=== PATIENT | female | born 1985 | race Caucasian/White ===

== ENCOUNTER 2016-12-05 05:37 | Inpatient (IN) | payer BC ==
[~2016-12-05] VITALS: Ht 167.6 cm; Wt 81.2 kg
[2016-12-05] MEDS ORDERED: LACTATED RINGER'S 1000ML 1,000 ML IV PRN (06:16)
[2016-12-05] MEDS ORDERED: LACTATED RINGER'S 1000ML 1,000 ML IV SCH ×2 (06:16→11:54)
[2016-12-05] MEDS ORDERED: PRENTAB26 PO (06:29)
[2016-12-05 06:30] VITALS: Ht 167.6 cm; Wt 81.2 kg
[2016-12-05 06:39] LABS: HEMATOCRIT 39.4 % (37-47); MEAN CORPUSCULAR HEMOGLOBIN 31.3 pg (25-34); MEAN CORPUSCULAR HGB CONC 34.8 g/dl (32-36); PLATELET COUNT 225 K/uL (130-400); RED BLOOD COUNT 4.38 M/uL (4.2-5.4); WHITE BLOOD COUNT 14.05 K/uL (4.8-10.8)
[2016-12-05] MEDS ORDERED: BUPIVACAINE 0.25% 30 ML VIAL ONE (07:21)
[2016-12-05] MEDS ORDERED: EpHEDrine SULFATE INJ 50 MG/ML AMP ONE (07:22)
[2016-12-05] MEDS ORDERED: FENTANYL CITRATE INJ 50 MCG/1 ML 2 ML VIAL ONE (07:22)
[2016-12-05] MEDS ORDERED: FENTANYL 2MCG/ML ROPIV 1.25MG/ML 100ML BAG EPI ONE (07:22)
[2016-12-05] MEDS ORDERED: LACTATED RINGER'S 1000ML 500 ML IV PRN (08:02)
[2016-12-05] MEDS ORDERED: NALOXONE HCL INJ 1 MG in SODIUM CHLORIDE 0.9% 1000ML 1,000 ML IV PRN (08:02)
[2016-12-05] MEDS ORDERED: EpHEDrine SULFATE INJ 50 MG/ML AMP IV PRN (08:15)
[2016-12-05] MEDS ORDERED: FENTANYL 2MCG/ML ROPIV 1.25MG/ML 100ML BAG EPI PRN (08:15)
[2016-12-05] MEDS ORDERED: ONDANSETRON INJ 2 MG/ML 2 ML VIAL IV PRN (08:15)
[2016-12-05] MEDS ORDERED: NALOXONE HCL INJ 0.4 MG/1 ML VIAL/CARP IV PRN (08:15)
[2016-12-05] MEDS ORDERED: NALBUPHINE HCL INJ 10 MG/ML AMP IV PRN (08:15)
[2016-12-05] MEDS ORDERED: DiphenhydrAMINE HCL 50 MG/ML VIAL IV PRN (08:15)
--- NOTE | 2016-12-05 08:58 | Progress Note ---
Progress Note Date of Service Dec 05, 2016. Progress Note Admit Note 31 F P0010 at 40 weeks admitted in active labor. GBS negative. FHT Cat 1. AROM clear fluid. Cervix now 6-7/90/0/vertex. Anticipate normal delivery.
--- NOTE | 2016-12-05 11:17 | Progress Note ---
Progress Note Date of Service Dec 05, 2016. Progress Note Cervix fully dilated/+1 FHT Cat 1 Will start to push
[2016-12-05] MEDS ORDERED: OXYTOCIN 30 UNITS/500ML NSS IV ONE (11:22)
[2016-12-05] MEDS ORDERED: DIPHTHERIA/TETANUS/PERTUSSIS 0.5 ML SYR/VIAL IM. ONE (12:00)
[2016-12-05] MEDS ORDERED: ACETAMINOPHEN/CODEINE 300/30MG TAB PO PRN ×2 (12:00)
[2016-12-05] MEDS ORDERED: MEASLES, MUMPS & RUBELLA VIRUS VIAL SQ. ONE (12:00)
[2016-12-05] MEDS ORDERED: OXYTOCIN 30 UNITS/500ML NSS IV PRN (12:00)
[2016-12-05] MEDS ORDERED: ACETAMINOPHEN 325 MG TAB PO PRN (12:00)
[2016-12-05] MEDS ORDERED: SUPERCREAM 0.870 % 15GM JAR EXT PRN (12:00)
[2016-12-05] MEDS ORDERED: HYDROCORTISONE ACETATE 25 MG SUPP PR PRN (12:00)
[2016-12-05] MEDS ORDERED: LANOLIN OINT EXT PRN ×2 (12:00)
[2016-12-05] MEDS ORDERED: BENZOCAINE 20% AER SPR 82.5 GM CAN EXT PRN (12:00)
--- NOTE | 2016-12-05 12:00 | Vaginal Delivery Summary ---
Vaginal Delivery Summary Delivery Note live female over intact perineum SHELBY with Apgars 8/9 weight pending. Delayed cord clamping. Cord blood obtained and placenta delivered spontaneously and intact. Small 1st degree vaginal tear repaired with 3/0 Vicryl suture. Final sponge, needle and instrument count are correct. EBL 200 ml. Mom and baby stable.
--- NOTE | 2016-12-05 14:00 | Anesthesia Procedure Note ---
Anesthesia Epidural Removal Nt Date & Time Dec 05, 2016 at 13:59 Vital Signs Pain Intensity: 0.0 Notes Mental Status: alert / awake / arousable, participated in evaluation Nausea / Vomiting: adequately controlled Pain: adequately controlled Airway Patency, RR, SpO2: stable & adequate BP & HR: stable & adequate Hydration State: stable & adequate Neuraxial Anesthesia: was administered, sensory block is resolving Anesthetic Complications: no major complications apparent, pt satisfied with anesthetic care Epidural: removed without complications, with tip intact
[2016-12-05 15:00] VITALS: BP 113/76; PULSE 117; TEMP 36.7
[2016-12-05] MEDS: DOCUSATE SODIUM 100 MG CAP PO SCH ×2 (19:43→19:51)
[2016-12-05 19:45] VITALS: BP 123/80; PULSE 93; TEMP 36.7
[2016-12-06 01:15] VITALS: BP 114/72; PULSE 85; TEMP 36.6
[2016-12-06 04:30] VITALS: BP 112/73; PULSE 76; TEMP 36.8
[2016-12-06 07:23] LABS: HEMATOCRIT 35.8 % (37-47)
[2016-12-06] MEDS: IBUPROFEN 600 MG TAB PO PRN (07:43)
[2016-12-06] MEDS: FERROUS SULFATE 325 MG TAB PO SCH (07:44)
[2016-12-06] MEDS: DOCUSATE SODIUM 100 MG CAP PO SCH ×2 (07:44→19:41)
[2016-12-06] MEDS: PRENATAL VITAMIN TAB PO SCH (07:44)
[2016-12-06 08:32] VITALS: BP 123/79; PULSE 74; TEMP 36.9; O2SAT 96
--- NOTE | 2016-12-06 09:41 | OB/GYN Progress Note ---
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 Subjective conversation w/ patient, physical exam Ambulation: ambulating normally Voiding: no voiding problems Passing Gas: Yes Diet Tolerance: Regular Diet Lochia: Moderate Feeding Type: Breast Feeding Pain: 2/10 Notes: Doing well, no concerns. Pain well controlled. Lochia decreasing. Ambulating without difficulty. Tolerating regular diet. Objective Vital Signs Date Time Temp Pulse Resp B/P (MAP) Pulse Ox O2 Delivery O2 Flow Rate FiO2 12/06/16 08:32 36.9 74 20 123/79 (94) 96 Room Air 12/06/16 04:30 36.8 76 18 112/73 (86) 12/06/16 01:15 36.6 85 18 114/72 (86) 12/05/16 19:45 36.7 93 18 123/80 (94) 12/05/16 15:00 36.7 117 20 113/76 (88) Physical Exam General Appearance: WELL-APPEARING Respiratory/Chest: chest non-tender, lungs clear Cardiovascular: regular rate, rhythm Abdomen: normal bowel sounds, soft Fundus: Firm Extremities: normal range of motion, non-tender, no calf tenderness Laboratory Results Last 24 Hours Test 12/06/16 06:47 Hemoglobin 12.1 g/dL Hematocrit 35.8 % Assessment and Plan Post- Day Number: 1 Continue Routine Care: -Continue routine care -Anticipate d/c home tomorrow
[2016-12-06 15:49] VITALS: BP 120/71; PULSE 62; TEMP 36.9
[2016-12-06 19:25] VITALS: BP 113/66; PULSE 71; TEMP 37; O2SAT 97
[2016-12-06] MEDS ORDERED: BISACODYL 5 MG TABEC PO SCH (20:00)
[2016-12-06 23:40] VITALS: BP 120/78; PULSE 77; TEMP 36.8; O2SAT 96
[2016-12-07] MEDS ORDERED: BISACODYL 10 MG SUPP PR PRN (07:00)
[2016-12-07] MEDS: PRENATAL VITAMIN TAB PO SCH (07:36)
[2016-12-07] MEDS: DOCUSATE SODIUM 100 MG CAP PO SCH (07:36)
[2016-12-07] MEDS: FERROUS SULFATE 325 MG TAB PO SCH (07:36)
[2016-12-07] MEDS: IBUPROFEN 600 MG TAB PO PRN (07:37)
[2016-12-07 07:45] VITALS: BP 126/82; PULSE 63; TEMP 36.6
[2016-12-07] MEDS ORDERED: MTR600X PO (07:51)
--- NOTE | 2016-12-07 07:53 | Discharge Instructions ---
Discharge Instructions Date of Service Dec 07, 2016. Admission Reason for Admission: Uterine Contractions At Greater Than 20 Weeks Of Discharge Discharge Diagnosis / Problem: term delivered Discharge Goals Goal(s): Routine recovery after delivery Activity Recommendations Activity Limitations: as noted below Lifting Limitations: no more than 10 pounds Exercise/Sports Limitations: gradually increase as tolerated May Resume Sexual Activity: after follow-up appointment Shower/Bathe: no limitations . Instructions / Follow-Up Instructions / Follow-Up ACTIVITY RECOMMENDATIONS: * Gradual return to full activity over the next 2-3 weeks. * No lifting - nothing heavier than baby over the next 2-3 weeks. * Do not engage in vigorous exercise, sexual activity or sports until cleared by your physician. * Do not drive or operate any motorized equipment until cleared by your physician. * You may shower/bathe daily. BREAST CARE: If you are not breast feeding: * Wear a supportive bra 24 hours a day for one to two weeks. * Avoid stimulating your breasts and nipples as much as possible during the first few weeks after delivery. * When taking a shower, have the warm water hit your back, not breasts. * When your breasts feel full, apply ice packs. Usually three to four times a day helps ease the discomfort. * Take a mild pain medication (Tylenol/Motrin) when you are uncomfortable. If breast feeding: * Use breast milk to lubricate nipples. Lansinoh cream may be used for sore nipples. You do not need to remove cream prior to breast feeding. If using a different brand of cream, check the label for directions regarding removal of cream prior to nursing. * Wear a supportive bra. * If having problems with breasts or breast feeding, call a information technology consultant or your health care provider. EPISIOTOMY CARE: After delivery, if you have an episiotomy (stitches), the following steps will ease discomfort and aid healing. * For the first 24 hours after delivery, place ice packs next to your episiotomy to help reduce swelling. * After the first 24 hour-period, sitz baths, either portable or in the tub, are suggested. A shower with a shower arm sprayed over the episiotomy may be comforting. * Lilly care should be done after each voiding and bowel movement. Squirt warm water from a plastic bottle over the perineum (region of the body between the anus and urinary opening) and pat dry. * Use Dermoplast to ease discomfort. Shake container. [place] directly over the episiotomy. * Place a Tucks on a clean sanitary pad next to your episiotomy. OVER THE COUNTER MEDICATION: * For discomfort or pain, you may use Acetaminophen (Tylenol), Ibuprofen (Advil ), or Naproxen (Aleve) following the package directions. * For constipation you may use Colace following the package directions. SPECIAL CARE INSTRUCTIONS: When you are discharged from the hospital, it is important for you to follow the instructions listed below: * During the first week at home, you should be able to care for yourself and your baby. In addition, the usual light household activities are encouraged. * Limit your activities to the way you feel. Do not try to clean the house or move furniture. Be sensible. * If you actively engage in sports and have done so up until the time of your delivery, you may resume these activities as soon as you feel able. This may take up to one month or even longer. Use good judgment. * Continue to take your vitamins for at least six weeks after the of your baby. * Your diet need not be limited unless you were on a special diet before your delivery. Breast-feeding mothers need around 2500 calories per day and at least 64-80 ounces of fluid per day (8 to 10 glasses). * You should eat foods from the four major food groups. Crash diets or fad diets are to be avoided. Eating lean meats, fresh fruits and vegetables, low-fat dairy products, high fiber foods and a regular exercise program, will help you get back to your pre- weight without putting your health at risk. * Constipation is sometimes a problem after delivery. Take a mild laxative as needed. If breast feeding, Milk of Magnesia is acceptable to use. You may use a suppository or Fleets enema if no episiotomy. * A daily shower or tub bath is suggested. Be sure to thoroughly and gently dry the perineum. * A bloody vaginal discharge will usually continue until around four weeks post . A small amount of bleeding may continue for as long as six weeks. Vaginal discharge changes from the bright red bleeding after delivery to pink then brownish and finally yellowish-pink before becoming white and disappearing. * Bleeding may increase with activity. Your first period may come in 4-8 weeks. If you are breast feeding, your period may be delayed even longer. * [place] (sex) can begin whenever both you and your partner feel comfortable and do not have any form of genital infection. It is recommended that you wait until after your return appointment and discuss with your physician. If you have questions, please talk to your health care practitioner. A condom should be used to prevent infection and . * Foreplay, gentle intercourse and lubrication is very important the first several times to prevent pain. A water-based lubricant such as K-Y jelly or Astroglide may be used. * Tampons may be used six weeks after delivery. * Douching should be avoided for 6 weeks after delivery. * If you have RH negative blood and your baby is RH positive, you will receive RHOGAM by injection prior to discharge. The nurse will give you a card to keep with you that has the date and place that you received RHOGAM after delivery. * During your care, you had a Rubella screen done to check for the presence of rubella antibodies in your blood. If your test was negative, you will receive a Rubella vaccine prior to discharge. This vaccine may cause a fever, soreness at the injection site and flu-like symptoms. If these symptoms persist, notify your health care practitioner. is not advised for three months after a Rubella vaccine. There is a higher chance of having a baby with defects if conceived within three months of getting the vaccine. * If you were discharged 24 hours from delivery or before 48 hours: Visiting nurses will come to your home 48 hours after discharge to assess you and your baby. The visiting nurse will meet with you while you are in the hospital to arrange a time and get directions to your home. * Verbalizes understanding of car seat law as reviewed with patient nursing. * Car Seat hand-out given and reviewed with patient by nursing. * Shaken baby information reviewed with patient by nursing. Call you doctor if: * Heavy bleeding (saturating several pads an hour) or passing clots the size of your fist. * A fever >101 degrees F (38.3 degrees C) on two occasions four hours apart and/or chills. * Unusual pain in the pelvic or vaginal areas. * "Baby Blues" lasting longer than two weeks. If you have any questions or concerns, call your health care practitioner at . FOLLOW-UP VISIT: * Please call the office at to schedule a 6 week examination. It is important you keep this appointment. * It is important for you to make arrangements for either yearly or twice yearly check-ups thereafter. Current Hospital Diet Patient's current hospital diet: Regular OB Diet Discharge Diet Recommended Diet: Regular OB Diet Fluid Restriction: None Pending Studies Studies pending at discharge: no Medical Emergencies . Who to Call and When: Medical Emergencies: If at any time you feel your situation is an emergency, please call 911 immediately. . Non-Emergent Contact Non-Emergency issues call your: Primary Care Provider . . "Provider Documentation" section prepared by Tien Lau. . VTE Core Measure Inpt VTE Proph given/why not?: Treatment not indicated
--- NOTE | 2016-12-07 08:13 | OB/GYN Progress Note ---
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 Subjective conversation w/ patient, physical exam Ambulation: ambulating normally Voiding: no voiding problems Passing Gas: Yes Diet Tolerance: Regular Diet Lochia: Small Feeding Type: Breast Feeding Objective Vital Signs Date Time Temp Pulse Resp B/P (MAP) Pulse Ox O2 Delivery O2 Flow Rate FiO2 12/06/16 23:40 Room Air 12/06/16 23:40 36.8 77 18 120/78 (92) 96 Room Air 12/06/16 19:25 37.0 71 18 113/66 (82) 97 Room Air 12/06/16 15:49 36.9 62 20 120/71 (87) 12/06/16 08:32 36.9 74 20 123/79 (94) 96 Room Air Physical Exam General Appearance: WELL-APPEARING, NO APPARENT DISTRESS Abdomen: non tender, soft Fundus: Firm Extremities: non-tender, normal inspection, no pedal edema, no calf tenderness Assessment and Plan Post- Day Number: 2 Continue Routine Care: discharged
[2016-12-07 11:10] VITALS: BP_DIAS 82; PULSE 63; TEMP 36.6
== END 2016-12-07 11:10 | disposition home or self-care (01) | DRG 775 ==
LOC: C.LD 05:37 → C.OPB 05:37 → C.LD 06:17 → C.OPB 06:18 → C.OBG 14:52
PROVIDERS: ADMIT Obstetrics & Gynecology; ATTEND Obstetrics & Gynecology
PROC: 0HQ9XZZ Repair Perineum Skin, External Approach (ICD-10-PCS; principal; 2016-12-05)
PROC: 10E0XZZ Delivery of Products of Conception, External Approach (ICD-10-PCS; principal; 2016-12-05)
PROC: 4A1HXFZ Monitoring of Products of Conception, Cardiac Rhythm, External Approach (ICD-10-PCS; principal; 2016-12-05)
PROC: 10907ZC Drainage of Amniotic Fluid, Therapeutic from Products of Conception, Via Natural or Artificial Opening (ICD-10-PCS; principal; 2016-12-05)
DX: O70.0 First degree perineal laceration during delivery (principal); Z90.79 Acquired absence of other genital organ(s); Z3A.40 40 weeks gestation of pregnancy; Z37.0 Single live birth

== ENCOUNTER 2016-12-14 20:27 | Emergency (ER) | payer BC ==
[~2016-12-14] VITALS: Ht 165.1 cm; Wt 72.0 kg
[~2016-12-14 20:27] MED LIST: MTR600X PO; PRENTAB26 PO
[2016-12-14 20:43] VITALS: Ht 165.1 cm; Wt 72.0 kg
[2016-12-14] MEDS ORDERED: SODIUM CHLORIDE 0.9% 1000ML 1,000 ML IV STA (21:41)
[2016-12-14 22:02] LABS: BASO % 0.1 %; BASO ABS # 0.01 K/uL (0-0.2); COMPLETE YES; EOS % 0.3 %; HEMATOCRIT 41.6 % (37-47); IG% 0.3 %; LYMPH % 5.3 %; LYMPH ABS # 1.03 K/uL (1.2-3.4); MEAN CELL VOLUME 92.4 fL (80-100); MEAN CORPUSCULAR HEMOGLOBIN 30.9 pg (25-34); MEAN CORPUSCULAR HGB CONC 33.4 g/dl (32-36); MEAN PLATELET VOLUME 10.2 fL (7.4-10.4); MONO % 4.8 %; NEUT % 89.2 %; PLATELET COUNT 338 K/uL (130-400); WHITE BLOOD COUNT 19.27 K/uL (4.8-10.8)
[2016-12-14 22:14] LABS: URINE APPEARANCE CLEAR (CLEAR); URINE BILIRUBIN NEG (NEG); URINE COLOR YELLOW; URINE NITRITE NEG (NEG); URINE PH 5.5 (4.5-7.5); URINE SPECIFIC GRAVITY 1.014 (1.000-1.030); UROBILINOGEN NEG (NEG); ZZUR CULT IF INDIC CLEAN CATCH NO
[2016-12-14 22:23] LABS: BUN/CREATININE RATIO 11.7 (10-20); CALCIUM 8.5 mg/dl (8.5-10.1); CREATININE 0.87 mg/dl (0.60-1.20); POTASSIUM 3.4 mmol/L (3.5-5.1)
[2016-12-14 22:24] LABS: MANUAL MICROSCOPIC REQUIRED? NO; REVIEW REQ? NO
--- NOTE | 2016-12-14 22:39 | DIAGNOSTIC IMAGING REPORT ---
SINGLE VIEW CHEST CLINICAL HISTORY: Fever. FINDINGS: An AP, portable, upright chest radiograph is obtained. No prior studies are available for comparison at the time of dictation. The examination is mildly degraded by portable technique and patient rotation. The cardiomediastinal silhouette is unremarkable. The lungs and pleural spaces are clear. No pneumothorax is seen. The bony thorax is grossly intact. IMPRESSION: No active disease in the chest. Electronically signed by: Ran Hnasen M.D. 12/14/2016 10:38 PM Dictated Date/Time: 12/14/2016 10:38 PM
[2016-12-15] MEDS ORDERED: DICLOXACILLIN SODIUM 250 MG CAP PO STA ×2 (00:28→00:42)
[2016-12-15] MEDS ORDERED: ACETAMINOPHEN 500 MG TAB PO STA (00:28)
[2016-12-15] MEDS ORDERED: EMPTY 8 DRAM VIAL ONE (00:48)
[2016-12-15] MEDS ORDERED: DCL/500 PO (00:50)
--- NOTE | 2016-12-15 00:50 | EMERGENCY ROOM VISIT NOTE ---
History First contact with patient: 21:34 Chief Complaint: ILLNESS Stated Complaint: FEVER,CHILLS AFTER VAG DELIVERY 12-05 History of Present Illness The patient is a 31 year old female who presents to the Emergency Room with complaints of fevers which began this afternoon. The patient states that she was laying on the couch and felt chills. She took her temperature and it was 102F. She states that she had a vaginal delivery 10 days ago. She states that she had a minimal amount of pelvic pain earlier today but denies pain in this time. She reports some vaginal bleeding but denies discharge. She denies nausea, vomiting, cough, cold symptoms or urinary symptoms. She does state that she has had some soreness in her right breast. She is currently breast- feeding. She took Motrin about 2 hours prior to arrival. Review of Systems A complete 10 point review of systems was reviewed with the patient with pertinent positives and negatives as per history of present illness. All else were negative. Past Medical/Surgical History Medical Problems: (1) No pertinent past medical history (2) Uterine contractions at greater than 20 weeks of gestation Family History Patient reports no known family medical history. Social History Smoking Status: Never Smoker Alcohol Use: none Drug Use: none Marital Status: in relationship Occupation Status: employed Current/Historical Medications Scheduled Dicloxacillin Sodium (Dynapen), 1 CAP PO QID Multivit/Min/Iron/Fol Ac/Pren ( Vitamin), 1 TAB PO DAILY Scheduled PRN Ibuprofen (Ibuprofen), 600 MG PO Q4H PRN for PAIN, DE DIOS, CRAMPING OR FEVER Allergies Coded Allergies: No Known Allergies (Unverified , 12/05/16) Physical Exam Vital Signs Date Time Temp Pulse Resp B/P (MAP) Pulse Ox O2 Delivery O2 Flow Rate FiO2 12/15/16 01:04 37.5 84 18 125/83 98 12/15/16 00:43 37.5 84 18 125/83 98 Room Air 12/14/16 22:24 37.8 101 18 128/82 100 Room Air 12/14/16 20:43 36.8 116 18 127/85 96 Room Air Physical Exam VITALS: Vitals are noted on the nurse's note and reviewed by myself. Vital signs stable. GENERAL: This is a 31-year-old female, in no acute distress, nondiaphoretic, well-developed well-nourished. BREAST: There is erythema and warmth over the right breast. No induration. No abnormal discharge. HEENT: Normocephalic. PERRLA. EOMI. Nares patent. Mucous membranes moist. Neck is supple without nuchal rigidity. HEART: Regular rate and rhythm without murmurs gallops or rubs. LUNGS: Clear to auscultation bilaterally without wheezes, rales or rhonchi. ABDOMEN: Positive bowel sounds x 4. Soft, nontender, without masses or organomegaly. NEURO: Patient was alert and oriented to person place and time. Medical Decision & Procedures ER Provider Diagnostic Interpretation: SINGLE VIEW CHEST FINDINGS: An AP, portable, upright chest radiograph is obtained. No prior studies are available for comparison at the time of dictation. The examination is mildly degraded by portable technique and patient rotation. The cardiomediastinal silhouette is unremarkable. The lungs and pleural spaces are clear. No pneumothorax is seen. The bony thorax is grossly intact. IMPRESSION: No active disease in the chest. US PELVIS: Uterus measures 13.7 x 7.2 x 10.5 cm. Endometrium is thickened with complex fluid measuring up to 16 mm in thickness. No evidence of increased vascularity. Correlate clinically. Right ovary measures 4.2 x 2.7 cm. Left ovary measures 3.2 x 1.8 cm. Blood flow detected bilaterally. No free fluid in the pelvis. Radiologist: Stanislaw Robin MD Laboratory Results 12/14/16 21:48 Red Blood Count 4.50, Mean Corpuscular Volume 92.4, Mean Corpuscular Hemoglobin 30.9, Mean Corpuscular Hemoglobin Concent 33.4, Mean Platelet Volume 10.2, Neutrophils (%) (Auto) 89.2, Lymphocytes (%) (Auto) 5.3, Monocytes (%) (Auto) 4.8, Eosinophils (%) (Auto) 0.3, Basophils (%) (Auto) 0.1, Neutrophils # (Auto) 17.20, Lymphocytes # (Auto) 1.03, Monocytes # (Auto) 0.92, Eosinophils # (Auto) 0.06, Basophils # (Auto) 0.01 12/14/16 21:48 Test 12/14/16 21:45 12/14/16 21:48 Urine Color YELLOW Urine Appearance CLEAR (CLEAR) Urine pH 5.5 (4.5-7.5) Urine Specific Paige 1.014 (1.000-1.030) Urine Protein NEG (NEG) Urine Glucose (UA) NEG (NEG) Urine Ketones NEG (NEG) Urine Occult Blood 2+ (NEG) Urine Nitrite NEG (NEG) Urine Bilirubin NEG (NEG) Urine Urobilinogen NEG (NEG) Urine Leukocyte Esterase SMALL (NEG) Urine WBC (Auto) 1-5 /hpf (0-5) Urine RBC (Auto) 0-4 /hpf (0-4) Urine Hyaline Casts (Auto) 0 /lpf (0-5) Urine Epithelial Cells (Auto) 5-10 /lpf (0-5) Urine Bacteria (Auto) NEG (NEG) White Blood Count 19.27 K/uL (4.8-10.8) Red Blood Count 4.50 M/uL (4.2-5.4) Hemoglobin 13.9 g/dL (12.0-16.0) Hematocrit 41.6 % (37-47) Mean Corpuscular Volume 92.4 fL (80-100) Mean Corpuscular Hemoglobin 30.9 pg (25-34) Mean Corpuscular Hemoglobin Concent 33.4 g/dl (32-36) Platelet Count 338 K/uL (130-400) Mean Platelet Volume 10.2 fL (7.4-10.4) Neutrophils (%) (Auto) 89.2 % Lymphocytes (%) (Auto) 5.3 % Monocytes (%) (Auto) 4.8 % Eosinophils (%) (Auto) 0.3 % Basophils (%) (Auto) 0.1 % Neutrophils # (Auto) 17.20 K/uL (1.4-6.5) Lymphocytes # (Auto) 1.03 K/uL (1.2-3.4) Monocytes # (Auto) 0.92 K/uL (0.11-0.59) Eosinophils # (Auto) 0.06 K/uL (0-0.5) Basophils # (Auto) 0.01 K/uL (0-0.2) RDW Standard Deviation 49.0 fL (36.4-46.3) RDW Coefficient of Variation 14.4 % (11.5-14.5) Immature Granulocyte % (Auto) 0.3 % Immature Granulocyte # (Auto) 0.05 K/uL (0.00-0.02) Anion Gap 8.0 mmol/L (3-11) Est Creatinine Clear Calc Drug Dose 94.0 ml/min Estimated GFR () 103.6 Estimated GFR (Non- 89.4 BUN/Creatinine Ratio 11.7 (10-20) Calcium Level 8.5 mg/dl (8.5-10.1) Total Bilirubin 0.4 mg/dl (0.2-1) Direct Bilirubin 0.1 mg/dl (0-0.2) Aspartate Amino Transf (AST/SGOT) 18 U/L (15-37) Alanine Aminotransferase (ALT/SGPT) 23 U/L (12-78) Alkaline Phosphatase 103 U/L (45-117) Total Protein 6.9 gm/dl (6.4-8.2) Albumin 3.0 gm/dl (3.4-5.0) Medications Administered Medications (Trade) Dose Ordered Sig/Charlene Route Start Time Stop Time Status Last Admin Dose Admin Sodium Chloride 1,000 ml @ 999 mls/hr Q1H1M STAT IV 12/14/16 21:41 12/14/16 22:41 DC 12/14/16 21:50 999 MLS/HR Dicloxacillin Sodium (Dynapen Cap) 500 mg NOW STAT PO 12/15/16 00:28 12/15/16 00:29 DC 12/15/16 00:36 500 MG Acetaminophen (Tylenol Tab) 1,000 mg NOW STAT PO 12/15/16 00:28 12/15/16 00:29 DC 12/15/16 00:36 1,000 MG Dicloxacillin Sodium (Dynapen Cap) 500 mg NOW STAT PO 12/15/16 00:42 12/15/16 00:44 DC 12/15/16 01:04 500 MG ED Course The patient was evaluated as above. Labs were drawn and IV access was obtained. Given the patient's significant leukocytosis, pelvic ultrasound was ordered to rule out retained products of conception. This was performed and read by alexandra as above. Case was discussed with the [facility] SHIFT SUPERVISOR RN restoration technician, Dr. Santos. Patient was reevaluated and given dicloxacillin and Tylenol. Discharge instructions were reviewed with the patient. The patient verbalized understanding of my assessment and treatment plan and was discharged home in good condition. Medical Decision Differential diagnosis includes endometritis, mastitis, viral illness, pneumonia , urinary tract infection, among others. The patient is a 31-year-old female who presents today complaining of fever. The patient initially declined any symptoms, however after talking with her several times she did mention that she had soreness of the right breast. Exam is consistent with mastitis. Given the patient's significant leukocytosis of 19 ,000, pelvic ultrasound was ordered to rule out retained products of conception/ endometritis. This did show a thickened endometrial with complex fluid. I discussed the case with Dr. Santos at [facility] SHIFT SUPERVISOR RN. She felt that these ultrasound results were normal given the patient's recent delivery and recommended starting her on antibiotics for mastitis. She will follow-up with the patient in the office next week. The patient was given Tylenol for pain/ fever. She was instructed to continue these medications at home and return here if she has worsening symptoms. Based on the patient's presentation and work up, I feel the patient is stable for outpatient treatment. The patient was educated to return to the emergency department for any worsening of their current condition or new/concerning symptoms. She will follow up with [facility] SHIFT SUPERVISOR RN. Medication reconciliation: I attest that I have personally reviewed the patient 's current medication list. Blood pressure screening: Patient was found to have normal blood pressure on screening and does not require follow-up. Impression Primary Impression: Mastitis Departure Information Dispostion Home / Self-Care Condition GOOD Prescriptions Dicloxacillin Sodium (DYNAPEN) 500 Mg Cap 1 CAP PO QID for 10 Days, #40 CAP Prov: Analia Holt .TAYLER 12/15/16 Referrals Michele London M.D.(KRISTOFER) (PCP) Canan. Mccarty MD Patient Instructions My [facility] Additional Instructions You were prescribed dicloxacillin to be taken every 6 hours for 10 days. This is an antibiotic. All antibiotics have the potential to cause diarrhea. Stop this medication and contact a medical provider if you were to develop any significant adverse side effects including: wheezing, shortness of breath, passing out, vomiting, or a diffuse rash. Always take antibiotics as directed and COMPLETE the ENTIRE course regardless of the improvement of your symptoms. For pain/fever control, you can use the following [id number] medicines ( if >12 yo): - Regular strength (325mg/tab) Tylenol (acetaminophen) 2 tabs every 4-6 hours as needed. Do not exceed 12 tablets in a 24 hour period. Avoid taking more than 4 grams (4000 mg) of Tylenol per day. This includes any other sources of acetaminophen you may take on a regular basis. - Regular strength (200 mg/tab) Advil (ibuprofen) 1-2 tabs every 4-6 hours as needed. Do not exceed a dose of 3200 mg per day. Follow-up with SHIFT SUPERVISOR RN on Saturday. Return to the emergency department with any worsening redness, high fevers not controlled by the above meds, vomiting, or any other new/concerning symptoms.
[2016-12-15 01:04] VITALS: BP 125/83; PULSE 84; TEMP 37.5; O2SAT 98
--- NOTE | 2016-12-15 06:40 | DIAGNOSTIC IMAGING REPORT ---
EXAMINATION: PELVIC ULTRASOUND (transabdominal only) CLINICAL HISTORY: leukocytosis, fever, recent vaginal delivery COMPARISON STUDY: None FINDINGS: The uterus measured 13.7 x 7.2 x 10.5 cm.. The endometrial stripe is thickened and heterogeneous measuring 16 mm. There is no internal vascularity. This likely represents hemorrhage.. The right ovary measured 40 x 15 x 27 mm. The left ovary measured 30 x 16 x 18 mm.. There is no ultrasonographic evidence of ovarian torsion. It should be noted that ovarian torsion can be present with normal Doppler ultrasonographic findings. There was no evidence of pathologic free pelvic fluid. IMPRESSION: Thickened complex endometrium measuring up to 16 mm in thickness. No evidence of increased vascularity. Clinical correlation is advocated. This may relate to recent delivery. Enlarged uterus. Electronically signed by: Dileep Merritt M.D. 12/15/2016 6:39 AM Dictated Date/Time: 12/15/2016 6:36 AM
== END 2016-12-15 01:06 | disposition home or self-care (01) ==
LOC: C.EDB 20:28 → C.EDA 12-15 01:06
DX: N61.0 Mastitis without abscess (principal)

== ENCOUNTER 2020-06-25 23:30 | Inpatient (IN) ==
[2020-06-26] MEDS ORDERED: OXYTOCIN 30 UNITS/500 ML BAG IV PRN ×2 (00:10→05:26)
--- NOTE | 2020-06-26 00:19 | History & Physical Report ---
Date of Service June 26, 2020 Assessment & Plan (1) Uterine contractions at greater than 20 weeks of gestation: 35-year-old -0-0-1 at 39 weeks and 1 day of gestation presenting with regular contractions and cervical change Vital signs stable afebrile doing well No signs or symptoms of coronavirus. heart rate reassuring GBS negative Patient desires to know estimated weight, see HPI Plan to admit, monitor, IV fluids, ultrasound for estimated weight and coronavirus testing History of Present Illness Primary Care Provider: Michele London MD Patient is a 35-year-old -0-1-1 at 39 weeks and 1 day gestation who has been feeling contractions since 6 PM last night, got more closer than regular every 3 to 5 minutes. They are not very painful. She denies leakage of fluid or vaginal bleeding. She reports good movements. Her has been uncomplicated. She was measuring large on June 24 ultrasound was ordered. She is worried about large baby but has not had a chance to have ultrasound in the office. She delivered 8 pound 6 ounce female in 2016. She desires an ultrasound tonight. Understands ultrasound in labor might be limited in terms of estimated weight. Discussed the risk of shoulder dystocia with larger babies and ACOG recommending primary EFW is larger than 5000 g. Allergies Allergy/AdvReac Type Severity Reaction Status Date / Time No Known Allergies Allergy Unverified 12/05/16 06:29 Home Medications Medication Instructions Recorded Confirmed Type Multivit/Min/Iron/Fol Ac/Pren 1 tab PO DAILY #0 tab 12/05/16 History ( Vitamin) Ibuprofen 600 mg PO Q4H PRN #30 tab 12/07/16 Rx Patient History OB History FT in 2017, 8 lb 6 oz, no complications SHOP TECH History History of STDs, no HSV, chlamydia pneumonia. Physical Exam Constitutional: WD/WN, vitals as above well developed and well nourished NAD Genitourinary: normal external appearance OB Exam Abdomen: + vertex Manual OB Exam: + cervical dilation 4 cm, + cervical effacement 90% and + station (TIGHT BAG) -2 OB Exam Monitor Tracing: + external uterine monitor used and + category I Results & Data ([facility]) Vital Signs (Past 12 Hours) Vital Signs Temp Pulse Resp BP 06/25/20 23:47 106 H 122/81 01/16/21 23:46 36.7 C 18
[2020-06-26 00:32] LABS: Hematocrit (blood only) 37.1 % (37-47); Hemoglobin 12.6 g/dL (12.0-16.0); Mean Corpuscular Hemoglobin 30.1 pg (25-34); Mean Corpuscular Volume 88.8 fL (80-100); Platelet Count 237 K/uL (130-400); RDW Coefficient of Variation 13.9 % (11.5-14.5); Red Blood Count 4.18 M/uL (4.2-5.4); White Blood Count 13.71 K/uL (4.8-10.8)
[2020-06-26] MEDS: LACTATED RINGER'S 1,000 ML IV PRN ×2 (00:44→04:21)
--- NOTE | 2020-06-26 01:27 | Obstetrical Progress Note ---
Date of Service June 26, 2020 Assessment & Plan Admission and Anticipated Discharge Date Admission Date: June 26, 2020 Subjective US done: EFW: 9 lb 3 oz Patient is aware and desires trial of vaginal She wants to get up and walk, declined epidural for now Results & Data ([facility]) Vital Signs (Past 12 Hours) Vital Signs Temp Pulse Resp BP 06/25/20 23:47 106 H 122/81 06/25/20 23:46 36.7 C 18
[2020-06-26] MEDS ORDERED: SODIUM CHLORIDE 0.9% INJ 10 ML VIAL ONE (03:42)
[2020-06-26] MEDS ORDERED: ePHEDrine sulfate 50 MG/ML AMP ONE (03:42)
[2020-06-26] MEDS ORDERED: BUPIVACAINE 0.25% 30 ML VIAL ONE (03:43)
[2020-06-26] MEDS ORDERED: fentaNYL citrate 100 MCG/2 ML VIAL ONE (03:43)
[2020-06-26] MEDS ORDERED: fentaNYL 2MCG/ML ROPIVACAINE 1.25MG/ML 100 ML BAG EPI ONE (03:44)
--- NOTE | 2020-06-26 03:46 | Obstetrical Progress Note ---
Date of Service June 26, 2020 Assessment & Plan Admission and Anticipated Discharge Date Admission Date: June 26, 2020 Subjective Patient is reevaluated Ctxs are geTting more intense VE: 6-7 cm/ 90%/ -1, bulging bag, AROM'ed clear fluid was obtained FHR 140's, categ I [place]: ctxs q 2-3 min Patient desires epidural for pain Continue to monitor closely' Anticipate Results & Data ([facility]) Vital Signs (Past 12 Hours) Vital Signs Temp Pulse Resp BP 06/26/20 00:00 36.7 C 18 06/25/20 23:47 106 H 122/81 06/25/20 23:46 36.7 C 18
--- NOTE | 2020-06-26 04:23 | Anesthesiology Consultation ---
Date of Service June 26, 2020 Assessment & Plan Chart Review Chart Review: Acceptable Risk for Labor Epidural Consults Requested none History Height/Weight Height: 5 ft 5 in Weight: 86.636 kg Allergies Allergy/AdvReac Type Severity Reaction Status Date / Time No Known Allergies Allergy Unverified 12/05/16 06:29 Medications Home Medications Medication Instructions Recorded Confirmed Last Taken Multivit/Min/Iron/Fol Ac/Pren 1 tab PO DAILY #0 tab 12/05/16 Unknown ( Vitamin) Ibuprofen 600 mg PO Q4H PRN #30 tab 12/07/16 Unknown Active Medications Generic Name Dose Route Start Last Admin Trade Name Freq PRN Reason Stop Dose Admin Lactated Ringer's 1,000 mls @ 150 mls/hr 06/26/20 00:10 06/26/20 00:44 Lr IV 06/28/20 00:09 999 mls/hr .[id number] PRN Administration L&D Protocol Protocol Social History Smoking Status: Never smoker Do You Dip or Chew Tobacco: No Hx Alcohol Use: No Hx Substance Use: No substance use type: does not use Physical Exam Vital Signs Last Vital Signs Temp 36.9 C 06/26/20 04:00 Pulse 116 H 06/26/20 04:20 Resp 18 06/26/20 04:00 BP 118/58 L 06/26/20 04:20 Pulse Ox 95 06/26/20 04:18 Testing Laboratory Results 06/26/20 00:22 Blood Type A Positive 06/26/20 00:22 Antibody Screen NEGATIVE 06/26/20 00:22
[2020-06-26] MEDS ORDERED: NALOXONE HCL 0.4 MG/1 ML VIAL/CARP IV PRN (04:24)
[2020-06-26] MEDS ORDERED: diphenhydrAMINE 50 MG/ML VIAL IV PRN (04:24)
[2020-06-26] MEDS ORDERED: NALOXONE HCL 1 MG in SODIUM CHLORIDE 0.9% 1000ML 1,000 ML IV PRN (04:24)
[2020-06-26] MEDS ORDERED: ePHEDrine sulfate 50 MG/ML AMP IV PRN (04:24)
[2020-06-26] MEDS ORDERED: fentaNYL 2MCG/ML ROPIVACAINE 1.25MG/ML 100 ML BAG EPI PRN (04:24)
[2020-06-26] MEDS ORDERED: LIDOCAINE HCL 2% MPF (LOCAL) 5 ML VIAL INFIL ONE (04:30)
[2020-06-26] MEDS ORDERED: SUPERCREAM 0.870% 15 GM JAR EXT PRN (05:26)
[2020-06-26] MEDS ORDERED: oxyCODONE/ACETAMINOPHEN 5mg/325mg TAB PO PRN (05:26)
[2020-06-26] MEDS ORDERED: DIPHTHERIA/TETANUS/PERTUSSIS 0.5 ML SYR/VIAL IM ONE (05:26)
[2020-06-26] MEDS ORDERED: MEASLES, MUMPS & RUBELLA VIRUS VIAL SQ ONE (05:26)
[2020-06-26] MEDS ORDERED: HYDROCORTISONE ACETATE 25 MG SUPP PR PRN (05:26)
[2020-06-26] MEDS ORDERED: bisacodyL 10 MG SUPP PR PRN (05:26)
[2020-06-26] MEDS ORDERED: BENZOCAINE 20% AER SPR 82.5 GM CAN EXT PRN (05:26)
[2020-06-26] MEDS ORDERED: ACETAMINOPHEN 325 MG TAB PO PRN (05:26)
[2020-06-26] MEDS: FERROUS SULFATE 325 MG TAB PO SCH (08:16)
[2020-06-26] MEDS: PRENATAL VITAMIN 1 TAB PO SCH (08:16)
[2020-06-26] MEDS: DOCUSATE SODIUM 100 MG CAP PO SCH ×2 (08:16→21:45)
[2020-06-26] MEDS: IBUPROFEN 600 MG TAB PO PRN ×4 (08:33→21:45)
--- NOTE | 2020-06-26 08:54 | Ultrasound Report ---
US OB limited CLINICAL HISTORY: large for dates, estimated weight COMPARISON STUDY: No previous studies for comparison. TECHNIQUE: Transabdominal sonography of the fetus was performed. FINDINGS: Single viable intrauterine gestation is noted. Please note that a dedicated anatomica l survey was not performed. heart rate is normal 132 bpm. Presentation is cephalic. Amniotic fl uid index is 16.8 cm. Maternal cervix was not well evaluated on this examination. Normal limb a nd body movements were noted. The biparietal diameter measured 9.4 cm. The head circumference measure d 34.28 cm which corresponds to an estimated gestational age of 39 weeks and 4 days. Abdominal circum ference measures 37.96 cm which corresponds to an estimated gestational age of 41 weeks and 6 days. F emur length measured 7.7 cm which corresponds to an estimated gestational age of 39 weeks and 3 days. The estimated weight on this examination is 9 pounds and 3 ounces (4160g) +/- 1 pound and 6 ou nces. This is 94th percentile. IMPRESSION: 1. Single viable intrauterine gestation with normal heart rate. 2. Estimated weight of 4160g (94th percentile). 3. Amniotic fluid index of 16.8 cm. 4. Cephalic presentation. ACT 112: Negative or not required by law. Electronically signed by: Gerber Jacobsen M.D. 06/26/2020 8:53 AM
--- NOTE | 2020-06-26 09:01 | Anesthesia Procedure Note ---
Date of Service June 26, 2020 Anesthesia Post Epidural Note Vital Signs Vital Signs: Temp Pulse Resp BP Pulse Ox 37.1 C 104 H 18 129/76 93 06/26/20 07:25 06/26/20 08:38 06/26/20 07:45 06/26/20 08:38 06/26/20 05:08 Pain Intensity Bilateral Episiotomy/Laceration: Pain Intensity: 2 Notes Mental Status: alert / awake / arousable and participated in evaluation Nausea / Vomiting: adequately controlled Pain: adequately controlled Airway Patency, RR, SpO2: stable & adequate BP & HR: stable & adequate Hydration State: stable & adequate Neuraxial Anesthesia: was administered and sensory block is resolving Anesthetic Complications: no major complications apparent Epidural: Removed without complications and With tip intact
--- NOTE | 2020-06-26 12:31 | Delivery Summary ---
DATE OF OPERATION: 06/26/2020 TIME OF DELIVERY OF BABY: 5:00 a.m. DETAILS OF DELIVERY: The patient was found to be fully dilated and desired to push. She pushed through 3 contractions and the head was and there was scarring from the old repair in the posterior fourchette. Due to suspected macrosomia, this scarred area was incised about 2 cm to aid with the delivery of the head and shoulders. Head was delivered without difficulty and then shoulders came with minimal traction and the baby was handed off to the mother where mouth and nose were suctioned. Cord was clamped x2 and cut at 1 minute delay. Baby was vigorously crying and moving. Then, vagina and perineum were checked for lacerations. There was only second-degree perineal laceration, which was opened earlier. It was repaired with 2-0 Vicryl in a running locked fashion bringing the vaginal mucosa together, bulbocavernous muscle together and perineal skin in a subcuticular fashion. Excellent hemostasis was achieved. Placenta was found to be in the vagina, delivered spontaneously as intact and complete. Uterus was explored, found to be empty. Fundus was firm. EBL was 200 mL. Mom and baby tolerated the procedure well. Sponge, lap, needle count was correct x2. Baby was a viable female infant, Apgars 9/9. No complications happened and I was present during the whole procedure. I attest to the content of the Intraoperative Record and any orders documented therein. Any exceptions are noted below. MTDD
[2020-06-27] MEDS: IBUPROFEN 600 MG TAB PO PRN ×2 (03:15→23:36)
[2020-06-27 06:35] LABS: Hematocrit (blood only) 32.9 % (37-47); Hemoglobin 10.7 g/dL (12.0-16.0); Mean Corpuscular Hemoglobin 29.4 pg (25-34); Mean Corpuscular Hgb Conc 32.5 g/dL (32-36); Mean Corpuscular Volume 90.4 fL (80-100); Mean Platelet Volume 10.8 fL (7.4-10.4); Platelet Count 181 K/uL (130-400); Red Blood Count 3.64 M/uL (4.2-5.4); White Blood Count 12.67 K/uL (4.8-10.8)
[2020-06-27] MEDS: DOCUSATE SODIUM 100 MG CAP PO SCH ×2 (07:48→23:37)
[2020-06-27] MEDS: FERROUS SULFATE 325 MG TAB PO SCH (07:49)
[2020-06-27] MEDS: PRENATAL VITAMIN 1 TAB PO SCH (07:49)
--- NOTE | 2020-06-27 08:24 | Delivery Summary ---
Vaginal Delivery Summary Date of Service June 27, 2020
--- NOTE | 2020-06-27 08:25 | Surgery Progress Note ---
Date of Service June 27, 2020 Assessment & Plan Admission and Anticipated Discharge Date Admission Date: June 26, 2020 Subjective PPD#1 doing well tolerating diet passing gas Physical Exam Constitutional: WD/WN, vitals as above well developed and comfortable abdomen soft and non-tender no edema neg [place]'s tent d/c in AM Results & Data ([facility]) Vital Signs (Past 12 Hours) Vital Signs Temp Pulse Resp BP Pulse Ox 06/27/20 07:48 36.6 C 73 20 109/73 06/27/20 03:05 36.8 C 75 16 116/70 97 06/26/20 23:00 36.6 C 78 16 123/63 97
[2020-06-27] MEDS ORDERED: bisacodyL 5 MG TABEC PO SCH (20:00)
[2020-06-28 06:50] LABS: Hematocrit (blood only) 36.1 % (37-47); Hemoglobin 11.7 g/dL (12.0-16.0)
[2020-06-28] MEDS: DOCUSATE SODIUM 100 MG CAP PO SCH (08:20)
[2020-06-28] MEDS: FERROUS SULFATE 325 MG TAB PO SCH (08:20)
[2020-06-28] MEDS: PRENATAL VITAMIN 1 TAB PO SCH (08:20)
--- NOTE | 2020-06-28 08:56 | Obstetrical Progress Note ---
Date of Service June 28, 2020 Assessment & Plan Admission and Anticipated Discharge Date Admission Date: June 26, 2020 Subjective Patient is seen and examined. She feels well, no complaints. Ambulating without dizziness Voiding without difficulty Tolerating regular diet with out N&V Bleeding is minimal No fever/ chills/ CP/ SOB/ N&V/ Leg pain Breast feeding without problems Vital Signs Temp Pulse Resp BP Pulse Ox 06/28/20 07:51 36.5 C 67 20 114/73 06/27/20 23:40 36.6 C 68 18 118/71 97 06/27/20 20:40 36.7 C 68 18 128/72 97 06/27/20 15:25 36.7 C 59 L 18 123/79 97 Lab Results 06/26/20 06/26/20 06/26/20 Range/Units 00:22 00:22 Unknown WBC 13.71 H (4.8-10.8) K/uL RBC 4.18 L (4.2-5.4) M/uL Hgb 12.6 (12.0-16.0) g/dL Hct 37.1 (37-47) % MCV 88.8 (80-100) fL MCH 30.1 (25-34) pg MCHC 34.0 (32-36) g/dL RDW Std Deviation 45.0 (36.4-46.3) fL RDW Coeff of Galen 13.9 (11.5-14.5) % Plt Count 237 (130-400) K/uL MPV 11.0 H (7.4-10.4) fL COVID-19 Eval Order Covid19 [facility]Now [facility] SARS-CoV-2, RNA, NAAT (NEGATIVE) Blood Type A Positive Antibody Screen NEGATIVE 06/26/20 06/27/20 06/28/20 Range/Units Unknown 06:27 06:38 WBC 12.67 H (4.8-10.8) K/uL RBC 3.64 L (4.2-5.4) M/uL Hgb 10.7 L 11.7 L (12.0-16.0) g/dL Hct 32.9 L 36.1 L (37-47) % MCV 90.4 (80-100) fL MCH 29.4 (25-34) pg MCHC 32.5 (32-36) g/dL RDW Std Deviation 46.0 (36.4-46.3) fL RDW Coeff of Galen 14.0 (11.5-14.5) % Plt Count 181 (130-400) K/uL MPV 10.8 H (7.4-10.4) fL COVID-19 Eval Order SARS-CoV-2, RNA, NAAT NEGATIVE (NEGATIVE) Blood Type Antibody Screen PE: General: Alert, orientedx3, NAD Abd: soft, NT, fundus firm, below Umbilicus Perineum intact, Lochia rubra minimal Ext; NT, no edema AP: 35 yo s/p , ppd# 2 VSS Afebrile doing well Continue routine care All questions were answered D/C home , f/u in office Results & Data ([facility]) Vital Signs (Past 12 Hours) Vital Signs Temp Pulse Resp BP Pulse Ox 06/28/20 07:51 36.5 C 67 20 114/73 06/27/20 23:40 36.6 C 68 18 118/71 97
== END 2020-06-28 11:15 | disposition home or self-care (01) | DRG 807 ==
LOC: OPB 23:30 → 4S1 23:36 → 4S2 06-26 08:45